=== PATIENT | male | born 1945 | race Caucasian/White ===

== ENCOUNTER 2016-07-04 12:49 | Emergency (ER) | payer MEDICARE, BC ==
--- NOTE | ~2016-07-04 | CR230 ---
[facility] A Service of [facility] RADIOLOGY TEXT RESULTS PATIENT: ELBA ACOSTA LOCATION: [facility] : 43 UNIT #: [id number] AGE: [address]: Talha Morel MD SEX: M ORDER DR: [id number] [facility]. [place], [place] [address] [id number] E MR#: [id number] Acc #: [id number] NAME: ELBA ACOSTA : 1945 SEX: M STUDY DATE/TIME: 07/04/2016 13:56 UNIT: [facility] ROOM: STUDY DESCRIPTION: CR Shoulder Min 2 View Rt Attending Physician: Talha Morel M.D. Ordering Physician: Talha Morel M.D. Primary Care Physician: Jacob Hoffmann M.D. MEDICAL IMAGING REPORT This report is preliminary unless electronic signature is present EXAM Right shoulder series. DATE OF EXAM 07/04/2016 HISTORY Trauma. Fell. Pain in right shoulder today. FINDINGS AP internal and external rotation views of the right shoulder are presented with a transscapular view. Comminuted fracture involving the neck of the right humerus. Dominant fracture plane is oblique at level of the humeral neck. There is a secondary fracture plane which extends through the greater tuberosity. Mild distraction of small shaft cortical fragment along the medial aspect of the dominant fracture plane. The humeral head fragment remains within the glenoid fossa. No other fractures are seen. Moderate degenerative change acromioclavicular joint. Periarticular soft tissues show no soft tissue defect, subcutaneous air or radiodense foreign body. Visualized ribs intact. Visualized right lung clear. Dictated by... Asael Baldwin M.D. THIS IS AN ELECTRONICALLY VERIFIED REPORT Asael Baldwin M.D. at 07/05/2016 7:52 PM HUMBERTO/sindy TD: 07/04/2016 15:19 JOB #: [id number] [facility] A Service of [facility] RADIOLOGY TEXT RESULTS PAT[facility]: [facility]STA [id number] [birth year] UNIT #: [id number] AGE: [address]: Talha Morel MD SEX: M ORDER DR: MEDICAL IMAGING REPORT Page 1 of 1 COPY
== END 2016-07-04 15:20 | disposition home or self-care (01) ==
LOC: CED 12:49
DX: S42.211A Unspecified displaced fracture of surgical neck of right humerus, initial encounter for closed fracture (principal); W01.0XXA Fall on same level from slipping, tripping and stumbling without subsequent striking against object, initial encounter; Y92.69 Other specified industrial and construction area as the place of occurrence of the external cause; Y99.0 Civilian activity done for income or pay
CPT/HCPCS: 73030; 99283; J2310